=== PATIENT | female | born 1955 | race Caucasian/White ===

== ENCOUNTER → 2021-06-17 | Outpatient (CLI) | payer BC, OTHER ==
--- NOTE | 2021-06-17 15:34 | RAD ---
Right upper quadrant abdominal ultrasound 06/17/2021 INDICATION: Elevated LFTs COMPARISON STUDY: None Discussion: Gallbladder is normal in appearance without evidence of wall thickening, stones, or sludge. The pancreas is poorly visualized secondary to overlying gas filled bowel. The liver is normal in size measuring 17 cm longitudinally. Liver demonstrates diffuse increase in ec hogenicity suggesting hepatic steatosis. Portal vein is patent with flow in the normal direction. The right kidney is unremarkable in appearance measuring 10.8 cm in length. There is no evidence of intrahepatic biliary dilatation. The common bile duct is nondilated measuring 2 mm in diameter. IMPRESSION: 1. Probable hepatic steatosis 2. Otherwise unremarkable right upper quadrant ultrasound Electronically signed by: Ronan Lombardi MD (06/17/2021 3:32 PM) [id number]
== END ==
LOC: US 08:01
PROVIDERS: ATTEND Family Medicine
DX: R74.8 Abnormal levels of other serum enzymes (principal)
CPT/HCPCS: 76705